=== PATIENT | male | born 1975 | race Caucasian/White ===

== ENCOUNTER → 2017-09-29 11:31 | Outpatient (CLI) | payer BC, SELFPAY ==
--- NOTE | 2017-09-29 11:36 | XR_ITS ---
XR hand RT min 3V HISTORY: Pain and swelling right hand ITS.REASON: RT HAND PAIN ORDERING PHYSICIAN: Amrik Sharp MD PATIENT AGE: 41 years COMPARISON: None FINDINGS: No fracture or dislocation. No lytic or blastic change. There is normal mineralization.. The joint spaces are well-preserved. No significant degenerative/arthritic changes. No erosive changes evident.. Mild soft tissue swelling is present at the PIP region of the third digit. No radio opaque foreign body or soft tissue gas. No bony erosive change. IMPRESSION: Mild soft tissue swelling of the third finger otherwise negative right hand
== END ==
PROVIDERS: PCP Family Medicine; Visit Provider Family Medicine
DX: M79.641 Pain in right hand (principal)
CPT/HCPCS: 73130

== ENCOUNTER → 2017-11-05 11:25 | Outpatient (POV) | payer BC, SELFPAY | PROVIDERS: Visit Provider Dermatology | DX: Z00.00 Encounter for general adult medical examination without abnormal findings (principal) ==

== ENCOUNTER 2019-12-09 08:00 | Outpatient (RCR) | payer BC, SELFPAY ==
--- NOTE | 2019-11-23 08:25 | HMH.PTOPEV ---
PT Outpatient Evaluation Rehab PT Outpatient Evaluation Start: 11/23/19 08:03 Freq: Status: Active Protocol: Document 11/23/19 08:03 KALPANA (Rec: 11/23/19 08:25 KALPANA [id number]) Electronically Signed By Jayson Barbosa, PT 11/23/19 08:03 Outpatient Therapy Subjective History Subjective History Pt reports insidious onset medial R elbow pain beginning ~3-4 weeks ago. Pt reports pain has progressed, moisés. w/ work-related typing, and any gripping/lifting activity. Chief Complaint Pain Symptom Type Ache,Dull Symptoms Relieved By Rest/Positioning Symptoms Aggravated By Physical Activity,Lifting Prior Functional Limitations Lifting,Desk Work/Reading Current Functional Limitations Lifting,Desk Work/Reading Symptom Description Constant but Variable Level of pain today (0-10) 3 Pain scale - at its best (0-10) 2 Pain scale - at its worst (0-10) 7 Shoulder/Elbow Eval Shoulder Objective Measurements Elbow Objective Measurements Palpation Tenderness Elbow Palpation Overall Comment 3/4 common flxr insertion R Elbow Palpation Finding Tenderness tenderness over the medial epicondyle right elbow exam standard Elbow MMT Right Elbow Flexion Strength Grade 5 Normal Biceps Brachii Strength Grade 5 Normal Brachioradialis Strength Grade 5 Normal Brachialis Strength Grade 5 Normal Brachialis Strength Grade (Flexion) 5 Normal Elbow Extension Strength Grade 5 Normal Triceps Brachii Strength Grade 5 Normal Wrist/Hand Eval Wrist Manual Muscle Testing Right Wrist Extension Strength Grade 4 Good Wrist Flexion Strength Grade 4- Good- Wrist Radial Deviation Strength Grade 4 Good Wrist Ulnar Deviation Strength Grade 4 Good Forearm Supination Strength Grade 4 Good Forearm Pronation Strength Grade 4 Good Manager Creative/Pinch Strength Manager Creative Strength Measurement (lbs) 110 Palmar Pinch (3-point) Strength 25 Measurement (lbs) Lateral Pinch Strength Measurement (lbs) 25 Outpatient Therapy Assessment Impairments Problems/Impairmments Palpation Tenderness,Impaired Range of Motion,Impaired Strength,Impaired Lifting, Impaired Desk/Computer Activities,Subjective C/O Pain ,Impaired Self Care/Self Management Prognosis Rehab Potential Good Clinical Impression Consistent with Diagnosis Yes Short Term Goals Number of Weeks 4 Decreased Palpation Tenderness Yes: 0-1/4 Increase Strength
== END 2019-12-09 08:05 | disposition home or self-care (01) ==
LOC: PT 08:00
PROVIDERS: Visit Provider Family Medicine
DX: M77.01 Medial epicondylitis, right elbow (principal)
CPT/HCPCS: 20560; 97014; 97033; 97035; 97110; 97163; G0283

== ENCOUNTER → 2020-02-28 15:33 | Outpatient (CLI) | payer BC, SELFPAY ==
[2020-03-01 10:29] LABS: Covid-19 Nasal PCR Sendout P&C Positive
== END ==
PROVIDERS: PCP Family Medicine; Visit Provider Family Medicine
DX: Z20.828 Contact with and (suspected) exposure to other viral communicable diseases (principal); U07.1 COVID-19
CPT/HCPCS: U0004

== ENCOUNTER 2020-08-29 19:11 | Emergency (ER) | payer BC, SELFPAY ==
[2020-08-29 19:15] VITALS: BP 142/86; PULSE 80; RESP 18; TEMP 36.7; O2SAT 98; BMI 28.7
[2020-08-29 19:33] VITALS: BMI 28.7
--- NOTE | 2020-08-29 19:33 | XR_ITS ---
PROCEDURE INFORMATION: Exam: XR Left Hand Exam date and time: 08/29/2020 7:33 PM Age: 44 years old Clinical indication: Injury or trauma; Other: A sprayer fell onto patient's left hand. ; Bleeding/hemorrhage and blunt trauma (contusions or hematomas); Injury details: A sprayer fell onto patient's left hand causing laceration. TECHNIQUE: Imaging protocol: XR Left hand. Views: 3 or more views. COMPARISON: No relevant prior studies available. FINDINGS: Bones/joints: No acute fracture or dislocation. Soft tissues: Normal. IMPRESSION: No acute fracture or dislocation.
--- NOTE | 2020-08-29 20:46 | HMH.EDUTC ---
[facility] [place] Disposition Clinical Impression: Laceration Disposition: Home, Self-Care Condition on Discharge: Good Instructions: Laceration Repair, DI for Laceration Repair, DI for Laceration Repair -- Simple Additional Instructions: Suture instructions: You have required stitches today. Please read the following instructions so you know how to care for them: 1. Keep wound area dry for the first 24 hours. 2 May clean gently with mild soap and water, after 48 hours to prevent crusting over suture knots. 3. You may shower if your provider gives permission but do not take a bath until the skin is healed.. 4. Never leave a wet dressing or Band-Aid on your stitches as this allows bacteria to reach the area and may cause infection. Band-aids can cause the wound to sweat and not recommended to wear for long periods of time Watch for signs of infection: Increasing redness, tenderness or warmth around the suture site Unusual swelling around the site Appearance of pus around each suture or any red streaks Fever If you develop any of the above signs or symptoms of infection, Follow up with Family Physician immediately 5. Suture removal in _7-10___days 6. Return to [facility] or follow up with family doctor for removal. This can be done by any medical provider during regular hours on Thursday through Thursday, by appointment. Referrals: Amrik Sharp MD [Primary Care Provider] - As needed Forms: Work/School Release Medical Decision Making - Vernon Inquiry Pt receiving controlled substance: No Vernon was queried for this patient: No Vital Signs: 08/29/20 19:15 08/29/20 20:47 Temperature 98.1 F 98.1 F Temperature Source Oral Pulse Rate 80 Pulse Rate [Right Brachial] 80 Respiratory Rate 18 18 Blood Pressure 142/86 H Blood Pressure [Right Arm] 142/86 H Blood Pressure Mean [Right Arm] 104 Blood Pressure Source [Right Arm] Automatic Cuff Blood Pressure Position [Right Arm] Sitting 02 Sat by Pulse Oximetry 98 Oxygen Delivery Method Room Air Orders (Tests/Meds): ED MEDICATIONS Discontinued Medications Generic Name Dose Route Start Last Admin Trade Name Freq PRN Reason Stop Dose Admin Ibuprofen 800 mg 08/29/20 19:48 08/29/20 20:00 Ibuprofen 400 Mg Tablet PO 08/29/20 19:49 800 mg ONCE ONE Administration Tetanus/Reduced Diphtheria/Acell Pertussis 0.5 ml 08/29/20 19:33 08/29/20 20:45 Tet/Diphth/Pert-Adult 0.5ml Syringe IM 08/29/20 19:34 0.5 ml .ONCE ONE Administration - Radiology Data #1 Image(s): Hand Image Reviewed: Yes I reviewed the patient's radiology image Preliminary Findings: No Fracture Seen [facility] [place] HPI - General Stated complaint: AO 08/29@1845 lac to L hand Time Seen by Provider: 08/29/20 19:45 Mode of Arrival: Ambulatory Source of Information: Patient Limitations: No Limitations Description of Symptoms (Recalled from Triage Doc. by RN): PATIENT STATES A SPRAYER TANK (APPROX 200 POUNDS) FELL ON LEFT HAND. HAND WAS PINNED BETWEEN TAILGATE AND TANK. LACERATION TO LEFT PALM, SWELLING NOTED TO HAND HEENT Symptoms (Recalled from RN notes): No Resp Symptoms (Recalled from RN notes): No Skin Symptoms (Recalled from RN notes): Yes MS Symptoms (Recalled from RN notes): Yes Functional Status (Recalled from RN notes): WNL - History of Present Illness Provider Complaint: Patient states that he was at the tailgate when sprayer slipped and landed on his left hand State that he is not sure if it pinched him or if something cut him States that he had a laceration to the palm of his hand and he immediately applied pressure and got family to bring him in - Related Data Previous Rx's Medication Instructions Recorded azithromycin 250 mg tablet 250 mg PO QDAY 5 Days #6 tab 01/24/18 fluticasone propionate 50 1 spray INTRANASAL QDAY #9.9 g 01/24/18 mcg/actuation nasal spray,suspension Allergies Allergy/AdvReac Type Severity Reaction Status Date / Time No Known Allergies Allergy
[2020-08-29 20:47] VITALS: BP 142/86; PULSE 80; RESP 18; TEMP 36.7
== END 2020-08-29 20:57 | disposition home or self-care (01) ==
PROVIDERS: Emergency Provider Nurse Practitioner; PCP Family Medicine
DX: S61.412A Laceration without foreign body of left hand, initial encounter (principal); W23.1XXA Caught, crushed, jammed, or pinched between stationary objects, initial encounter; Y92.89 Other specified places as the place of occurrence of the external cause; Z23 Encounter for immunization
CPT/HCPCS: 12001; 73130; 90471; 90715; 99202; G0463

== ENCOUNTER → 2021-02-27 11:58 | Outpatient (CLI) | payer BC, SELFPAY | PROVIDERS: PCP Family Medicine; Visit Provider Family Medicine | DX: G47.33 Obstructive sleep apnea (adult) (pediatric) (principal); R40.0 Somnolence; R06.83 Snoring | CPT/HCPCS: G0399 ==

== ENCOUNTER 2021-08-17 08:43 | Emergency (ER) | payer BC, SELFPAY ==
[2021-08-17] VITALS (8 sets, daily range): BP systolic 125–164; BP diastolic 74–99; PULSE 60–81; RESP 16–18; TEMP 36.4–36.6; O2SAT 96–99; BMI 28.7; BMI 31.5
--- NOTE | 2021-08-17 09:14 | HMH.EDUTC ---
[facility] [place] Dis[place] Clinical Impression: Diverticulitis Disposition: Home, Self-Care Condition on Discharge: Good Instructions: DI for Diverticulitis, DI for Acute Abdominal Pain Additional Instructions: CT findings: IMPRESSION: 1. Moderate diverticulitis involving the sigmoid colon. 2. Nonspecific stranding of the fatty tissues in the region of the root of the mesentery. 3. Incomplete visualization of 2 noncalcified pulmonary nodules at the right lung base measuring up to 3 mm. 4. For patients at low risk (minimal or absent history of smoking and of other known risk factors), no routine follow-up is indicated. For patients at high risk (history of smoking or of other known risk factors), consider optional CT Chest at 12 months. (Reference: Adi) To share these findings with your primary care physician and have a follow-up CT scan if your primary care physician deems this appropriate. Continue to keep an eye on your condition. If your condition worsens or any other concerns arise, please return to the emergency department for reassessment. Prescriptions: Amoxicillin/Potassium Clav [Amox-Clav 875-125 mg Tablet] 1 tab PO BID 7 Days #14 tab Transmission Status: Received by [facility] Referrals: J Luis Rico MD [Primary Care Provider] - Medical Decision Making - Medical Records Medical records reviewed: No: I reviewed the patient's medical records. - Vernon Inquiry Pt receiving controlled substance: No Vital Signs: 08/17/21 08:57 08/17/21 09:51 08/17/21 09:52 Temperature 97.5 F L 97.8 F Temperature Source Oral Oral Pulse Rate 70 Pulse Rate [Left Radial] 81 67 Respiratory Rate 18 16 16 Blood Pressure 153/90 H Blood Pressure [Right Arm] 131/86 153/90 H Blood Pressure Mean 121 Blood Pressure Mean [Right Arm] 101 111 Blood Pressure Position Blood Pressure Position [Right Arm] Sitting 02 Sat by Pulse Oximetry 96 99 98 Oxygen Delivery Method Room Air 08/17/21 10:00 08/17/21 10:30 08/17/21 11:00 Temperature Temperature Source Pulse Rate 67 60 69 Pulse Rate [Left Radial] Respiratory Rate 17 16 17 Blood Pressure 159/99 H 159/89 H 160/98 H Blood Pressure [Right Arm] Blood Pressure Mean 114 110 114 Blood Pressure Mean [Right Arm] Blood Pressure Position Blood Pressure Position [Right Arm] 02 Sat by Pulse Oximetry 99 97 98 Oxygen Delivery Method 08/17/21 11:30 08/17/21 14:26 Temperature 98 F Temperature Source Oral Pulse Rate 64 74 Pulse Rate [Left Radial] Respiratory Rate 16 16 Blood Pressure 164/97 H 125/74 Blood Pressure [Right Arm] Blood Pressure Mean 115 Blood Pressure Mean [Right Arm] Blood Pressure Position Sitting Blood Pressure Position [Right Arm] 02 Sat by Pulse Oximetry 98 Oxygen Delivery Method Room Air Room Air - Lab Data Lab results reviewed: Yes: I reviewed the patient's lab results. Lab Results 08/17/21 09:35: Urine Color Sheri, Urine Appearance Clear, Urine pH 6.5, Ur Specific [place] 1.025, Urine Protein Trace, Urine Glucose (UA) Negative, Urine Ketones Negative, Urine Blood Negative, Urine Nitrate Negative, Urine Bilirubin Negative, Urine Urobilinogen 1, Ur Leukocyte Esterase Negative 08/17/21 09:55: WBC 11.5 H, RBC 5.75, Hgb 17.3, Hct 52.2 H, MCV 90.8, MCH 30.2, MCHC 33.2, RDW 13.1, Plt Count 366, MPV 7.9, Neut % (Auto) 80.1 H, Lymph % (Auto) 10.0, [place] % (Auto) 7.4, Eos % (Auto) 0.9, Baso % (Auto) 1.6, Neut # (Auto) 9.2 H, Lymph # (Auto) 1.2, [place] # (Auto) 0.9, Eos # (Auto) 0.1, Baso # (Auto) 0.2 08/17/21 09:55: Sodium 138, Potassium 4.2, Chloride 103, Carbon Dioxide 30, Anion Gap 9.2, BUN 14, Creatinine 1.00, Estimated Creat Clear 133, Estimated GFR 81, Est GFR ( Amer) 98, Glucose 105 H, Calcium 9.3, Total Bilirubin 1.1, AST 27, ALT 25, Alkaline Phosphatase 76, Total Protein 7.7, Albumin 4.5, Globulin 3.2, Albumin/Globulin Ratio 1.4 08/17/21 09:55: Urine Color Yellow, Urine Appearanc
--- NOTE | 2021-08-17 09:53 | HMH.EDGENADL ---
ED Disposition Clinical Impression: Diverticulitis Disposition: Home, Self-Care Condition on Discharge: Good Additional Instructions: CT findings: IMPRESSION: 1. Moderate diverticulitis involving the sigmoid colon. 2. Nonspecific stranding of the fatty tissues in the region of the root of the mesentery. 3. Incomplete visualization of 2 noncalcified pulmonary nodules at the right lung base measuring up to 3 mm. 4. For patients at low risk (minimal or absent history of smoking and of other known risk factors), no routine follow-up is indicated. For patients at high risk (history of smoking or of other known risk factors), consider optional CT Chest at 12 months. (Reference: Adi) To share these findings with your primary care physician and have a follow-up CT scan if your primary care physician deems this appropriate. Continue to keep an eye on your condition. If your condition worsens or any other concerns arise, please return to the emergency department for reassessment. Referrals: J Luis Rico MD [Primary Care Provider] - - Critical Care Critical Care Time: No Attestation: On 08/17/21, the high probability of a clinically significant, sudden or life threatening deterioration of the following system(s) required my full and direct attention, intervention and personal management. The time I documented below is in addition to time spent performing reported procedures but includes the following listed in this critical care notation. Medical Decision Making - Medical Records Medical records reviewed: Yes: I reviewed the patient's medical records. - Vernon Inquiry Pt receiving controlled substance: No Vital Signs: 08/17/21 08:57 08/17/21 09:51 08/17/21 09:52 Temperature 97.5 F L 97.8 F Temperature Source Oral Oral Pulse Rate 70 Pulse Rate [Left Radial] 81 67 Respiratory Rate 18 16 16 Blood Pressure 153/90 H Blood Pressure [Right Arm] 131/86 153/90 H Blood Pressure Mean 121 Blood Pressure Mean [Right Arm] 101 111 Blood Pressure Position [Right Arm] Sitting 02 Sat by Pulse Oximetry 96 99 98 Oxygen Delivery Method Room Air 08/17/21 10:00 08/17/21 10:30 08/17/21 11:00 Temperature Temperature Source Pulse Rate 67 60 69 Pulse Rate [Left Radial] Respiratory Rate 17 16 17 Blood Pressure 159/99 H 159/89 H 160/98 H Blood Pressure [Right Arm] Blood Pressure Mean 114 110 114 Blood Pressure Mean [Right Arm] Blood Pressure Position [Right Arm] 02 Sat by Pulse Oximetry 99 97 98 Oxygen Delivery Method 08/17/21 11:30 Temperature Temperature Source Pulse Rate 64 Pulse Rate [Left Radial] Respiratory Rate 16 Blood Pressure 164/97 H Blood Pressure [Right Arm] Blood Pressure Mean 115 Blood Pressure Mean [Right Arm] Blood Pressure Position [Right Arm] 02 Sat by Pulse Oximetry 98 Oxygen Delivery Method Room Air - Lab Data Lab results reviewed: Yes: I reviewed the patient's lab results. Lab Results 08/17/21 09:35: Urine Color Sheri, Urine Appearance Clear, Urine pH 6.5, Ur Specific [place] 1.025, Urine Protein Trace, Urine Glucose (UA) Negative, Urine Ketones Negative, Urine Blood Negative, Urine Nitrate Negative, Urine Bilirubin Negative, Urine Urobilinogen 1, Ur Leukocyte Esterase Negative 08/17/21 09:55: WBC 11.5 H, RBC 5.75, Hgb 17.3, Hct 52.2 H, MCV 90.8, MCH 30.2, MCHC 33.2, RDW 13.1, Plt Count 366, MPV 7.9, Neut % (Auto) 80.1 H, Lymph % (Auto) 10.0, [place] % (Auto) 7.4, Eos % (Auto) 0.9, Baso % (Auto) 1.6, Neut # (Auto) 9.2 H, Lymph # (Auto) 1.2, [place] # (Auto) 0.9, Eos # (Auto) 0.1, Baso # (Auto) 0.2 08/17/21 09:55: Sodium 138, Potassium 4.2, Chloride 103, Carbon Dioxide 30, Anion Gap 9.2, BUN 14, Creatinine 1.00, Estimated Creat Clear 133, Estimated GFR 81, Est GFR ( Amer) 98, Glucose 105 H, Calcium 9.3, Total Bilirubin 1.1, AST 27, ALT 25, Alkaline Phosphatase 76, Total Protein 7.7, Albumin 4.5, Globulin 3.2, Albumin/Globulin Ratio 1.
--- NOTE | 2021-08-17 10:11 | CT_ITS ---
PROCEDURE INFORMATION: Exam: CT Abdomen And Pelvis Without Contrast Exam date and time: 08/17/2021 12:12 PM Age: 45 years old Clinical indication: Abdominal pain; Other: Llq; Additional info: Llq pain, sharp/mod-severe-- oral contrast given TECHNIQUE: Imaging protocol: Computed tomography of the abdomen and pelvis without contrast. Radiation optimization: All CT scans at this facility use at least one of these dose optimization techniques: automated exposure control; mA and/or kV adjustment per patient size (includes targeted exams where dose is matched to clinical indication); or iterative reconstruction. Other contrast: Oral, gastrograffin , 30; COMPARISON: No relevant prior studies available. FINDINGS: Lungs: Noncalcified pulmonary nodules at the left at the right lung base measuring up to 3 mm (series 3, image number 8, 9). Liver: Normal. No mass. Gallbladder and bile ducts: Normal. No calcified stones. No ductal dilation. Pancreas: Normal. No ductal dilation. Spleen: Accessory splenic nodule. Adrenal glands: Normal. No mass. Kidneys and ureters: Normal. No hydronephrosis. Stomach and bowel: There is colonic wall thickening with pericolonic edema and inflamed diverticulum involving the sigmoid colon compatible with acute diverticulitis.Findings demonstrated on series 3 image number 82 through 90. No abscess or perforation. No bowel obstruction. Appendix: No evidence of appendicitis. Intraperitoneal space: Subtle stranding of the mesenteric fat near the root of the mesentery is demonstrated. Findings are nonspecific. Vasculature: Unremarkable. No abdominal aortic aneurysm. Lymph nodes: Bilateral nonspecific inguinal lymphadenopathy. Urinary bladder: Unremarkable as visualized. Reproductive: Unremarkable as visualized. Bones/joints: Unremarkable. No acute fracture. Soft tissues: Unremarkable. IMPRESSION: 1. Moderate diverticulitis involving the sigmoid colon. 2. Nonspecific stranding of the fatty tissues in the region of the root of the mesentery. 3. Incomplete visualization of 2 noncalcified pulmonary nodules at the right lung base measuring up to 3 mm. 4. For patients at low risk (minimal or absent history of smoking and of other known risk factors), no routine follow-up is indicated. For patients at high risk (history of smoking or of other known risk factors), consider optional CT Chest at 12 months. (Reference: Adi) REFERENCES: Adi Downing, et al. Guidelines for Management of Incidental Pulmonary Nodules Detected on CT Images: From the Fleischner Society 2017. Radiology. 2017;284(1):228-243.
[2021-08-17 10:14] LABS: Apearance,Urine Clear (Clear); Color,Urine Amber (Yellow); PH,Urine 6.5 (5.0-8.5); Specific Gravity, Urine 1.025 (1.005-1.030)
[2021-08-17 10:15] LABS: Bilirubin,Urine Negative (Negative); Blood, Urine Negative (Negative); Glucose,Urine (UA) Negative (Negative); Ketones,Urine Negative (Negative); Protein,Urine Trace (Negative); UTC Leukocyte Esterase,Urine Negative (Negative); UTC Nitrate,Urine Negative (Negative); Urobilinogen,Urine 1 EU/dl (0.2)
[2021-08-17 10:15] LABS: Microscopic, Urine URINE MICROSCOPIC (MICROSCOPIC)
[2021-08-17 10:21] LABS: Basophils # 0.2 K/mm3 (0-0.2); Basophils % 1.6 % (0.1-2.0); Eosinophils # 0.1 K/mm3 (0.0-0.4); Eosinophils % 0.9 % (0.1-12.0); Hematocrit 52.2 % (42.0-52.0); Hemoglobin 17.3 g/dL (14.1-18.0); Lymphocytes # 1.2 K/mm3 (0.7-4.5); Mean Corpuscular HGB Conc 33.2 g/dL (31.8-35.4); Mean Corpuscular Hemoglobin 30.2 pg (27.0-31.2); Mean Corpuscular Volume 90.8 fl (80-94); Mean Platelet Volume 7.9 fl (7.4-10.4); Monocytes # 0.9 K/mm3 (0.1-1.0); Monocytes % 7.4 % (1.7-9.3); Neutrophils # 9.2 K/mm3 (1.8-7.8); Neutrophils % 80.1 % (37.0-80.0); Platelet Count 366 K/mm3 (142-424); Red Blood Count 5.75 M/mm3 (4.60-6.20); Red Cell Distribution Width 13.1 % (11.5-17.5); White Blood Count 11.5 K/mm3 (4.8-10.8)
[2021-08-17 10:28] LABS: Chloride 103 mmol/L (98-107); Potassium 4.2 mmoL/L (3.5-5.1); Sodium 138 mmol/L (136-145)
[2021-08-17 10:30] LABS: Blood Urea Nitrogen 14 mg/dl (9-20); Creatinine Clearance Estimated 133 mL/min (50-200); Estimated Glomerular Filt Rate 81 ml/min (>60); GFR (African American) 98 ML/MIN (>60)
[2021-08-17 10:31] LABS: Alanine Aminotransferase 25 U/L (12-78); Albumin Level 4.5 g/dl (3.5-5.0); Albumin/Globulin Ratio 1.4 (1.1-1.8); Alkaline Phosphatase 76 U/L (38-126); Anion Gap 9.2 mEq/L (5-15); Aspartate Amino Transferase 27 U/L (17-59); Bilirubin,Total 1.1 mg/dl (0.2-1.3); Calcium 9.3 mg/dl (8.4-10.2); Carbon Dioxide 30 mmol/L (22.0-30.0); Globulin 3.2 g/dL (1.3-3.2); Glucose 105 mg/dl (74-100); Lipase 61 U/L (23-300); Total Protein,Serum 7.7 g/dl (6.3-8.2)
[2021-08-17 10:46] LABS: Appearance,Urine CLEAR (Clear); Bilirubin,Urine Negative (Negative); Blood, Urine Negative (Negative); Color,Urine YELLOW (Yellow); Glucose,Urine (UA) Negative (Negative); Ketones,Urine Negative (Negative); Leukocyte Esterase,Urine Negative (Negative); Nitrate,Urine Negative (Negative); PH,Urine 6.5 (5.0-8.5); Protein,Urine Negative (Negative); Specific Gravity, Urine 1.025 (1.005-1.030)
--- NOTE | 2021-08-17 10:47 | PC.NURSE ---
finished po contrast
--- NOTE | 2021-08-17 11:31 | PC.NURSE ---
Pt given blanket. up to bathroom
== END 2021-08-17 14:28 | disposition home or self-care (01) ==
LOC: UTC 08:46 → ER 09:50
PROVIDERS: Emergency Medicine; Emergency Provider Nurse Practitioner Family; PCP Family Medicine
DX: K57.32 Diverticulitis of large intestine without perforation or abscess without bleeding (principal); R91.8 Other nonspecific abnormal finding of lung field
CPT/HCPCS: 74176; 80053; 81001; 81003; 83690; 85025; 87086; 96374; 96376; 99285

== ENCOUNTER 2023-06-03 16:21 | Outpatient (CLI) | payer BC, SELFPAY ==
[2023-06-03 16:31] LABS: Basophils # 0.2 K/mm3 (0-0.2); Basophils % 3.1 % (0.1-2.0); Eosinophils # 0.1 K/mm3 (0.0-0.4); Eosinophils % 2.4 % (0.1-12.0); Hemoglobin 17.1 g/dL (14.1-18.0); Lymphocytes # 1.3 K/mm3 (0.7-4.5); Lymphocytes % 22.8 % (10-50); Mean Corpuscular HGB Conc 33.5 g/dL (31.8-35.4); Mean Corpuscular Hemoglobin 30.3 pg (27.0-31.2); Mean Corpuscular Volume 90.5 fl (80-94); Mean Platelet Volume 7.7 fl (7.4-10.4); Monocytes # 0.7 K/mm3 (0.1-1.0); Monocytes % 12.6 % (1.7-9.3); Neutrophils # 3.4 K/mm3 (1.8-7.8); Neutrophils % 59.1 % (37.0-80.0); Platelet Count 270 K/mm3 (142-424); Red Blood Count 5.64 M/mm3 (4.60-6.20); Red Cell Distribution Width 12.8 % (11.5-17.5); White Blood Count 5.8 K/mm3 (4.8-10.8)
== END 2023-06-03 23:59 ==
LOC: LAB.DROPOF 16:22
PROVIDERS: PCP Family Medicine; Visit Provider Family Medicine
DX: J06.9 Acute upper respiratory infection, unspecified (principal)
CPT/HCPCS: 85025

== ENCOUNTER 2024-02-24 02:20 | Emergency (ER) | payer BC, SELFPAY ==
[2024-02-24 02:21] VITALS: BP 139/88; PULSE 85; RESP 19; TEMP 36.6; O2SAT 99; BMI 30.1
[2024-02-24 02:54] LABS: Microscopic, Urine URINE MICROSCOPIC (MICROSCOPIC)
[2024-02-24 02:55] LABS: Appearance,Urine CLEAR (Clear); Bilirubin,Urine Negative (Negative); Blood, Urine Negative (Negative); Color,Urine YELLOW (Yellow); Glucose,Urine (UA) Negative (Negative); Ketones,Urine Negative (Negative); Leukocyte Esterase,Urine Negative (Negative); Nitrate,Urine Negative (Negative); PH,Urine 6.5 (5.0-8.5); Protein,Urine Negative (Negative); Specific Gravity, Urine <= 1.005 (1.005-1.030); Urobilinogen,Urine 0.2 EU/dl (0.2)
[2024-02-24 03:10] LABS: Squamous Epithelial Cell,Urine Occasional #/hpf (0-5)
[2024-02-24] MEDS: ACETAMINOPHEN 500MG TAB 1000 MG PO (03:26)
[2024-02-24] MEDS: METHOCARBAMOL 500MG TABLET 1000 MG PO (03:26)
[2024-02-24] MEDS: LIDOCAINE 5% TRANSDERMAL PATCH 1 EACH TP (03:27)
--- NOTE | 2024-02-24 03:40 | ED_ITS ---
Discharge Plan Disposition Patient Disposition: Home, Self-Care Condition: Good Prescriptions Prescriptions: New methocarbamol 500 mg tablet 500 mg PO Q8H PRN (Reason: muscle spasm) Qty: 20 0RF lidocaine 5 % adhesive patch,medicated See Rx Instructions .ROUTE .COMPLEX Qty: 15 0RF Rx Instructions: Put 1 patch on the most painful area for 12 hours. Remove and leave off for 12 hours before using a new patch. No Action amoxicillin-pot clavulanate 1 EACH tablet 1 tab PO BID 7 Days Qty: 14 0RF Referrals Follow up/Referrals: J Luis Rico MD [Primary Care Provider] - See instructions Activity Restrictions/Add. Instructions Additional Instructions/Restrictions: You were evaluated in the ER and are appropriate for discharge at this time. Take Tylenol, ibuprofen if needed for pain, do not exceed the recommended dose on the bottle. Drink water and eat a small snack each time you take these medications to avoid side effects. Take the prescribed methocarbamol if needed for muscle relaxant. This medication may make you sleepy, do not drive or operate machinery after taking it. Use the prescribed lidocaine patches as directed. Make an appointment with your primary care doctor for reevaluation in a few days, return to the ER with new, worsening, or otherwise concerning symptoms. Clinical Impressions Clinical Impression: Back muscle spasm Instructions Patient Instructions: DI for Low Back Pain Print Language Print Language: [place] Discharge ED Provider: Braulio Veronica General Adult HPI General Chief complaint: Back Pain/Injury Stated complaint: back pain Time Seen by Provider: 02/24/24 03:00 Mode of Arrival: Family Vehicle Source of Information: Patient, Spouse and Medical Record Limitations: No Limitations Description of Symptoms (Recalled from ER Triage Doc. by RN): Pt c/o mid-back pain R of the spine. Denies any known injury but has had some recent heavy lifting. States the pain started gradually in the afternoon (02/22). States the pain has been increasing t/o the evening. He can not get comfortable. Pain increases with deep inspiration, cough, twist, or lay down. He reports the pain radiates to posterior R shoulder. Denies any urinary difficulty, urgency, or gross heamturia. No tenderness to palpation. Denies any pain or tenderness to spine. History of Present Illness HPI narrative: 48-year-old male with history of BPH presents to the ER with concerns of right mid upper back pain. He reports pain started in the last 24 hours, it was not sudden in onset and he does not recall any specific injury. He states he was shoveling gravel the day before. He states he cannot get comfortable despite taking 3 ibuprofen 1.5 hours prior to arrival. He reports the pain is worse with deep breathing which causes a sudden, grabbing type sensation pain according to the patient, he also has worse pain with coughing, twisting. He states the pain radiates from his mid back up the right side to his right shoulder but he has no nausea, vomiting, or abdominal pain. He denies dysuria, hematuria, difficulty urinating. He states he does not have any history of kidney stones, no pain radiating inferiorly or to the groin. He denies any midline pain, no numbness, tingling, or weakness. No recent fevers, chills, traumatic injuries, or other associated symptoms. He denies saddle anesthesia, no bowel or bladder incontinence or retention. Related Data Previous Rx's ?Medication ?Instructions ?Recorded amoxicillin 875 mg-potassium 1 tab PO BID 7 days #14 tabs 08/17/21 clavulanate 125 mg tablet lidocaine 5 % topical patch See Rx Instructions topical 02/24/24 .COMPLEX #15 ea methocarbamol 500 mg tablet 500 mg PO Q8H PRN muscle spasm #20 02/24/24 tabs Allergies Allergy/AdvReac Type Severity Reaction Status Date / Time No Known Allergies Allergy Verified 08/17/21 09:01 [facility] Disclaimer: The information contained in this section may have been updated after the patient was seen, as this information can be updated by other users. Social History Smoking Status: Never smoker alcohol intake: never current occupational status: other Travel in the last 8 weeks: None Have you lived/traveled outside [place] in past 30 days?: No Contact w/someone who lives/traveled outside US past 30 days?: No Exposure to someone with infectious disease in past 14 days?: No Do you have a fever (greater than 100.4 F or 38 C)?: No Have you tested positive for COVID-19: No Exposed to someone with COVID-19 in past 14 days?: No Do you have a sore throat?: No Do you have a cough?: No Do you have any weakness?: No Do you have any diarrhea?: No Are you experiencing any unusual bleeding?: No Do you have any muscle aches/pain?: No Do you have any abdominal pain?: No Are you experiencing loss of taste or smell?: No Other Medical History Have you received the Flu Vaccine for this season: No Have you received the Pneumonia Vaccine: No ROS Obtained: Yes Systems reviewed as appropriate & no additional complaints except as documented Per HPI Physical Exam General General appearance: alert and in no apparent distress Head Head exam: atraumatic and normocephalic Eye Eye exam: Present PERRL and EOMI ENT ENT exam: Present mucous membranes moist Neck Neck exam: Present normal inspection and full ROM Chest Chest inspection: Present symmetric chest wall rise Respiratory Respiratory exam: Present normal lung sounds bilaterally; Absent respiratory distress, wheezes or stridor Cardiovascular Cardiovascular exam: Present regular rate and normal rhythm Abdominal Exam Abdominal exam: Present soft; Absent distention or tenderness Extremities Exam Extremities exam: Present full ROM Back Exam Back exam: Present tenderness (Mild tenderness to palpation of the right trapezius, rhomboids, latissimus); Absent CVA tenderness (R), CVA tenderness (L) or vertebral tenderness Neurological Exam Neurological exam: Present alert, oriented X3 and normal gait; Absent motor sensory deficit Psychiatric Psychiatric exam: Present normal affect and normal mood Skin Skin exam: Present warm and dry Medical Decision Making Medical Records Medical records reviewed: Yes I reviewed the patient's medical records. Screening: Per USPSTF and CDC recommendations, given the prevalence of disease in our region, it is our hospital?s policy to screen for HIV and viral Hepatitis for a ll patients aged 18 and over and those with ongoing risk factors. MR Comment: No recent encounters within our system, most recent was 2021 when patient was evaluated for diverticulitis [place] Inquiry Pt receiving controlled substance: No Vital Signs: 02/24/24 02:21 02/24/24 04:11 02/24/24 04:11 Temperature 97.8 F 97.8 F Temperature Source Oral Oral Pulse Rate 71 Pulse Rate [Right] 85 Respiratory Rate 19 16 Blood Pressure 133/87 Blood Pressure [Right Arm] 139/88 Blood Pressure Mean [Right Arm] 105 Blood Pressure Source Automatic Cuff Blood Pressure Source [Right Arm] Automatic Cuff 02 Sat by Pulse Oximetry 99 98 Oxygen Delivery Method Room Air Room Air Room Air Lab Data Lab Results 02/24/24 02:43: Urine Color Yellow, Urine Appearance Clear, Urine pH 6.5, Ur Specific [place] <= 1.005, Urine Protein Negative, Urine Glucose (UA) Negative, Urine Ketones Negative, Urine Blood Negative, Urine Nitrate Negative, Urine Bilirubin Negative, Urine Urobilinogen 0.2, Ur Leukocyte Esterase Negative, Urine RBC None, Urine WBC None, Ur Squamous Epith Cells Occasional, Urine Bacteria None Orders (Tests/Meds): ED MEDICATIONS Generic Name Dose Route Start Last Admin Trade Name Freq PRN Reason Stop Dose Admin Methocarbamol 1,000 mg 02/24/24 09:00 02/24/24 03:26 Methocarbamol 500mg Tablet PO 03/25/24 08:59 1,000 mg BID LYNN Administration Discontinued Medications Generic Name Dose Route Start Last Admin Trade Name Freq PRN Reason Stop Dose Admin Acetaminophen 1,000 mg 02/24/24 03:16 02/24/24 03:26 Acetaminophen 500mg Tab PO 02/24/24 03:17 1,000 mg ONCE ONE Administration Lidocaine 1 each 02/24/24 03:16 02/24/24 03:27 Lidocaine 5% Transdermal Patch TP 02/24/24 03:17 1 each ONCE ONE Administration ORDERS Category Date Time Status HIV (1&2) Antibody Rapid Stat Lab 02/24/24 03:00 Ordered Hep C Ab with Reflex to RNA Stat Lab 02/24/24 03:00 Ordered UA [Urinalysis and Microscopic] Stat Lab 02/24/24 02:43 Completed Medical Decision Narrative: In summary, this 48-year-old male with history of BPH presents to the emergency department today with right mid/upper back pain that is worse positionally. On initial evaluation patient is hemodynamically stable, afebrile, no chest pain or difficulty breathing, he has pain with certain positions and movements, tenderness of the muscles of the right upper back, no CVA tenderness, no abdominal tenderness, no neurologic abnormalities, no saddle anesthesia or bowel or bladder incontinence or retention, remainder of exam benign. Differential diagnosis includes but is not limited to muscle spasm, I considered possibility of skeletal injury bribe low suspicion for this given no history of recent trauma, also considered kidney stone but have lower suspicion for this without any radiation inferiorly or to the groin as well as no CVA tenderness. No red flag symptoms. Highest suspicion for MSK etiology. After discussion with patient and family at bedside, we will attempt conservative management with Tylenol, lidocaine patch, methocarbamol initially. UA was ordered to evaluate for blood, WBCs, or other potential indicators of kidney stone. UA negative for blood or other actionable abnormalities. On reassessment patient has had dramatic improvement of symptoms and feels very well, able to go home. Given his significant improvement with these medications I believe he is appropriate for discharge. I prescribed methocarbamol and lidocaine patches. Patient was given instructions on symptomatic management, f ollow up instructions, and return precautions for the emergency department. Patient indicated understanding and was discharged in stable condition. Critical Care Critical Care Time Critical Care Time: No
[2024-02-24 04:11] VITALS: BP 133/87; PULSE 71; RESP 16; TEMP 36.6; O2SAT 98; O2SAT 99
== END 2024-02-24 04:26 | disposition home or self-care (01) ==
PROVIDERS: Emergency Provider Emergency Medicine; PCP Family Medicine
DX: M62.830 Muscle spasm of back (principal); M54.9 Dorsalgia, unspecified; X50.0XXA Overexertion from strenuous movement or load, initial encounter; Y93.89 Activity, other specified; Y92.9 Unspecified place or not applicable
CPT/HCPCS: 81001; 99283

== ENCOUNTER 2024-05-19 06:10 | Day surgery (SDC) | payer BC, SELFPAY ==
[2024-05-16 12:03] VITALS: BMI 28.6
[2024-05-19 06:50] VITALS: BP 135/85; PULSE 64; RESP 18; TEMP 36.1; O2SAT 96
[2024-05-19] MEDS: LACTATED RINGERS 1000ML 1,000 ML 50 ML IV (07:05)
--- NOTE | 2024-05-19 07:20 | EXP.ANES.CKL ---
[facility] Disclaimer: The information contained in this section may have been updated after the patient was seen, as this information can be updated by other users. Medical History Sleep apnea History of COVID-19 Surgical History H/O rotator cuff surgery Family History Other No significant family history Social History Smoking Status: Never smoker alcohol intake: current substance use type: denies use current occupational status: employed Travel in the last 8 weeks: None caffeine: Yes [facility] Anesthesia Checklist Patient Identification Patient Identification: Arm Band Structural Data Admitted From: Home Planned Operative Procedure/s: Colonoscopy Consent for Planned Operative Procedure(s) Verified: Yes Verified Documents: Surgical Consent and History and Physical NPO Status Verified Time NPO: 04:30 (finished prep) Additional verifications Anesthesia Reactions: No Airway Assessment Mallampati Score:: Class II C-Spine Mobility Assessed: Yes TMJ Mobility Assessed: Yes Dentition: Good Dentition Neurological Assessment Level of Consciousness: Awake, Alert and Appropriate Anesthesia Plan Anesthesia Risk discussed: Yes Anesthesia Plan: Verified ASA Class: II Anesthesia Type: MAC
[2024-05-19 07:33] VITALS: O2SAT 100
--- NOTE | 2024-05-19 07:34 | EXP.HP ---
History of Present Illness *Admission Date: 05/19/24 *Reason for visit:: Screening for colon cancer *History of present illness: Mr. Flores is a 48-year-old gentleman who is here for initial screening colonoscopy. The examination is deemed medically necessary for screening colonoscopy. The patient has been seen, interviewed and examined prior to the procedure by both myself and the anesthesia provider. [facility] Disclaimer: The information contained in this section may have been updated after the patient was seen, as this information can be updated by other users. Medical History (Updated 05/19/24 @ 07:35 by Christiano Wolf II, MD) Sleep apnea History of COVID-19 Surgical History H/O rotator cuff surgery Family History Other No significant family history Social History (Updated 05/19/24 @ 07:21 by Roman Shaver CRNA) Smoking Status: Never smoker alcohol intake: current substance use type: denies use current occupational status: employed Travel in the last 8 weeks: None caffeine: Yes Have you lived/traveled outside US in past 30 days?: No Contact w/someone who lives/traveled outside US past 30 days?: No Exposure to someone with infectious disease in past 14 days?: No Do you have a fever (greater than 100.4 F or 38 C)?: No Have you tested positive for COVID-19: No Exposed to someone with COVID-19 in past 14 days?: No Do you have a sore throat?: No Do you have a cough?: No Do you have any weakness?: No Are you experiencing any nausea/vomitting?: No Do you have any diarrhea?: No Are you experiencing any unusual bleeding?: No Do you have any muscle aches/pain?: No Do you have any abdominal pain?: No Are you experiencing loss of taste or smell?: No Other Medical History Have you received the Flu Vaccine for this season: No Have you received the Pneumonia Vaccine: No Review of Systems Review of Systems Review of systems (narrative): Negative *Cardiovascular Comments: Negative *Gastrointestinal Comments: Negative *Genitourinary Comments: Negative *Musculoskeletal Comments: Negative *Neurologic Comments: Negative Meds Home Medications and Allergies Home Medications ?Medication ?Instructions ?Recorded ?Confirmed ?Type sodium sul 1.479 gram-potas ch See Rx Instructions PO PER PKG DIR 05/05/24 Rx 0.188 gram-magnes sul 0.225 gram colonscopy #24 tabs tablet (Sutab) alfuzosin 10 mg tablet,extended 0 mg PO DAILY 05/16/24 05/19/24 History release 24 hr New Prescriptions to Start Prescriptions: Allergies Allergy/AdvReac Type Severity Reaction Status Date / Time No Known Allergies Allergy Verified 05/19/24 06:56 Exam Data for Last 24 hours Vital signs and Labs for Last 24 Hours: Temp Pulse Resp BP Pulse Ox O2 Del Method 97.0 F L 64 18 135/85 96 Room Air 05/19/24 06:50 05/19/24 06:50 05/19/24 06:50 05/19/24 06:50 05/19/24 06:50 05/19/24 06:50 I & O for Last 24 hours: Intake & Output 05/16/24 05/17/24 05/18/24 05/19/24 23:59 23:59 23:59 23:59 Weight 199 lb 15.983 oz *Routine HEENT Exam Head: Present normocephalic Eye: Present EOMI and PERRL ENT: Present mucous membranes moist *Routine Neck Exam Neck: Present supple *Routine Respiratory Exam Respiratory: Present CTA bilaterally *Routine Cardiovascular Exam Cardiovascular: Present RRR *Routine Abdominal Exam Abdominal: Present soft and normoactive bowel sounds; Absent tenderness *Routine Rectal Exam Rectal:: deferred *Routine Genitalia Exam Genitalia:: deferred *Routine Extremities Exam Extremities: Absent cyanosis, clubbing or edema *Routine Skin Exam Skin: Present warm; Absent rash *Routine Neurological Exam Neurological: Present alert and oriented X3 Assessment and Plan *Assessment and plan (1) Screening for colon cancer: Status: Acute Category: Medical Code(s): Z12.11 - Encounter for screening for malignant neoplasm of colon Plan A/P: 1. Screening for colon cancer is the preprocedural diagnosis. The patient will be anesthetized/sedated using MAC sedation. The patient has been seen and examined. Cardiac and lung assessment prior to the examination is stable. Proceed with planned screening colonoscopy
--- NOTE | 2024-05-19 07:35 | P.PCN_ITS ---
[facility] Procedure Note Date: 05/19/24 Time: 07:48 Procedure Note:: Colonoscopy Procedure Report: Colonoscopy Endoscopist: Christiano Wolf II, MD Referring physician: J Luis Rico MD Date of Procedure: May 19, 2024 Equipment: Olympus 190 variable stiffness pediatric colonoscope Sedation: MAC sedation Indication: Mr. Flores is a 48-year-old gentleman who is here for initial screening colonoscopy. He reports no abdominal pain, weight loss, change in his bowel habits or rectal bleeding. He reports no family history of colon cancer. In July 2021, the patient did have a CAT scan that showed moderate diverticulitis involving the sigmoid colon. The patient does take Metamucil daily. Procedure: Prior to the procedure, a history and physical exam was performed, and patient's medications and allergies were reviewed. The risks, benefits and alternatives of the sedation and procedure were discussed with the patient. All questions were answered and informed consent was obtained. The patient was brought to the procedure room. Patient identification and proposed procedure were verified by the physician and the nurse. The patient was placed in a left lateral decubitus position and the scope was passed under direct vision. Throughout the procedure, the patient's blood pressure, pulse, and oxygen saturations were monitored continuously. The colonoscopy was accomplished without difficulty. The patient tolerated the procedure well. Findings: On digital rectal examination there was normal rectal tone. There were no external hemorrhoids. The prostate was 2+, smooth, soft, symmetric without nodules. The colonoscope was introduced through the anal canal to the rectum and advanced to the cecum. The ileocecal valve and appendiceal orifice were identified. The scope was advanced a short distance into the ileum which appeared grossly normal. The scope was then withdrawn into the colon. The cecum, ascending and transverse colon and mucosa were grossly normal. There were scattered diverticuli throughout the descending and sigmoid colon (LEFT colon). The rectum itself was normal. Upon retroflexion within the rectum there were grade 1-2 internal hemorrhoids. The preparation was excellent throughout with Stamps Preparation Score of 9. The cecal time was 10 minutes. Impression: 1. Left-sided diverticulosis 2. Grade 1-2 internal hemorrhoids Plan: The patient will not require surveillance colonoscopy again for 10 years by ACS guidelines. I would encourage continued bulking psyllium fiber supplementation on a maintenance basis.
[2024-05-19 07:53] VITALS: BP 124/87; PULSE 68; RESP 17; TEMP 36.4; O2SAT 94
[2024-05-19 08:03] VITALS: BP 118/92; PULSE 65; RESP 17; O2SAT 95
[2024-05-19 08:13] VITALS: BP 128/90; PULSE 72; RESP 17; O2SAT 95
[2024-05-19 08:23] VITALS: BP 145/88; PULSE 68; RESP 17; O2SAT 94
== END 2024-05-19 08:35 | disposition home or self-care (01) ==
PROVIDERS: PCP Family Medicine; Visit Provider Internal Medicine Gastroenterology
PROC: 0DJD8ZZ Inspection of Lower Intestinal Tract, Via Natural or Artificial Opening Endoscopic (ICD-10-PCS; CPT 45378; principal; 2024-05-19 07:30)
DX: K57.30 Diverticulosis of large intestine without perforation or abscess without bleeding (principal); K64.8 Other hemorrhoids; Z12.11 Encounter for screening for malignant neoplasm of colon
CPT/HCPCS: 45378; J7120